=== PATIENT | female | born 1950 | race Native Hawaiian/Other Pacific Islander ===

== ENCOUNTER 2018-05-18 16:02 | Emergency (ER) | payer OTHER, MEDICARE ==
[2018-05-18 16:13] VITALS: BP 138/84
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
== END 2018-05-18 17:20 | disposition home or self-care (01) ==
LOC: ER 16:02
DX: S39.012A Strain of muscle, fascia and tendon of lower back, initial encounter (principal); V43.52XA Car driver injured in collision with other type car in traffic accident, initial encounter; R03.0 Elevated blood-pressure reading, without diagnosis of hypertension; Z87.891 Personal history of nicotine dependence
CPT/HCPCS: 99283